=== PATIENT | male | born 1990 | race Caucasian/White ===

== ENCOUNTER 2021-11-28 20:29 | Emergency (ER) | payer MEDICAID, SELFPAY ==
--- NOTE | 2021-11-28 20:48 | ED_ITS ---
HPI - General Adult General Chief complaint: Groin Pain <Gordon Velez MD - Last Filed: 11/28/21 20:59> Stated complaint: BLOOD CLOT IN SCROTUM <Gordon Velez MD - Last Filed: 11/28/21 20:59> Time Seen by Provider: 11/28/21 20:47 <Gordon Velez MD - Last Filed: 11/28/21 20:59> History of Present Illness HPI narrative: This 31-year-old male comes in reporting pain in his scrotum. He states that he was she self there about 3 days ago and neck his Skin. Since then he has had some pain and bruising with swelling. He does not report any symptoms of dysuria. He does not have any chest pain or shortness of breath. 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 He was tested for genetic causes of thrombus but these were all negative in the past. <Gordon Velez MD - Last Filed: 11/28/21 20:59> Related Data Home medications: Home Medications Medication Instructions Recorded Confirmed No Known Home Medications 11/28/21 11/28/21 <Gordon Velez MD - Last Filed: 11/28/21 20:59> Allergies/adverse reactions: Allergies Allergy/AdvReac Type Severity Reaction Status Date / Time No Known Drug Allergies Allergy Verified 11/28/21 20:53 <Gordon Velez MD - Last Filed: 11/28/21 20:59> Review of Systems Status of ROS: Reports: 10 or more systems reviewed and unremarkable except as noted in History and below <Gordon Velez MD - Last Filed: 11/28/21 20:59> Narrative: Constitutional: No fevers, no weight gain or loss. Eyes: No discharge. No vision changes. HENT: No congestion, no sore throat, no ear pain. Cardiovascular: No chest pain, no palpitations. Respiratory: No shortness of breath, no wheezes, no cough. Gastrointestinal: No abdominal pain, no vomiting, no diarrhea. Genitourinary: No dysuria, no hematuria. Pain, swelling, and bruising in the inferior posterior aspect of his scrotum. Musculoskeletal: Normal range of motion. Skin: No rashes, no pruritis. Neurological: No dizziness, weakness, sensory change, speech change. Endo/Heme/Allergies: No bruising or bleeding. No polydipsia. Pysch: no suicidality, no anxiety, no insomnia. All other systems reviewed and are negative. <Gordon Velez MD - Last Filed: 11/28/21 20:59> [facility] Medical History: Medical History (Updated 11/28/21 @ 21:02 by Angel Cotton, RN) Right leg DVT <Gordon Velez MD - Last Filed: 11/28/21 20:59> Surgical History: Surgical History (Updated 11/28/21 @ 21:02 by Angel Cotton, ISRA) No significant past surgical history <Gordon Velez MD - Last Filed: 11/28/21 20:59> Social History: Social History Smoking Status: Never smoker Do you use any of these nicotine containing products: None How often do you have a drink containing alcohol: never How often do you have six or more drinks on one occasion: Never AUDIT-C Alcohol total score: 0 Non-prescribed substance use: denies use <Gordon Velez MD - Last Filed: 11/28/21 20:59> Exam Const: Vital Signs, click to edit/add: Vital Signs - 24 hr 11/28/21 20:51 11/28/21 21:58 Temperature 97.9 F 97.9 F Pulse Rate [Right Pulse Oximeter] 89 78 Respiratory Rate 16 16 Blood Pressure [Ri ght Upper Arm] 135/78 125/70 Pulse Oximetry 98 98 Oxygen Delivery Me thod Room Air Room Air <Gordon Velez MD - Last Filed: 11/28/21 20:59> Vital Signs, click to edit/add: Vital Signs - 24 hr 11/28/21 20:51 11/28/21 21:58 Temperature 97.9 F 97.9 F Pulse Rate [Right Pulse Oximeter] 89 78 Respiratory Rate 16 16 Blood Pressure [Ri ght Upper Arm] 135/78 125/70 Pulse Oximetry 98 98 Oxygen Delivery Me thod Room Air Room Air <Jp Dunn MD - Last Filed: 11/28/21 23:45> Course Reevaluation(s) Reevaluation #1: I spoke to the patient, testicular ultrasound showed evidence of a small hematoma, but no other significant issue. We will use some bacitracin on this along with some heat, he was very reassured by this. <Jp Dunn MD - Last Filed: 11/28/21 23:45> Vital Signs Vital signs: Initial Vital Signs Temperature 97.9 F 11/28/21 20:51 Temperature Source Temporal Artery Scan 11/28/21 20:51 Pulse Rate 89 11/28/21 20:51 Respiratory Rate 16 11/28/21 20:51 Blood Pressure 135/78 11/28/21 20:51 Blood Pressure Mean 97 11/28/21 20:51 Blood Pressure Position Sitting 11/28/21 20:51 Pulse Oximetry 98 11/28/21 20:51 Oxygen Delivery Method 11/28/21 20:51 Vital Signs Temperature 97.9 F 11/28/21 20:51 Pulse Rate 89 11/28/21 20:51 Respiratory Rate 16 11/28/21 20:51 Blood Pressure 135/78 11/28/21 20:51 Pulse Oximetry 98 11/28/21 20:51 Oxygen Delivery Method 11/28/21 20:51 Temperature 97.9 F 11/28/21 21:58 Pulse Rate 78 11/28/21 21:58 Respiratory Rate 16 11/28/21 21:58 Blood Pressure 125/70 11/28/21 21:58 Pulse Oximetry 98 11/28/21 21:58 Oxygen Delivery Method 11/28/21 21:58 <Gordon Velez MD - Last Filed: 11/28/21 20:59> Initial Vital Signs Temperature 97.9 F 11/28/21 20:51 Temperature Source Temporal Artery Scan 11/28/21 20:51 Pulse Rate 89 11/28/21 20:51 Respiratory Rate 16 11/28/21 20:51 Blood Pressure 135/78 11/28/21 20:51 Blood Pressure Mean 97 11/28/21 20:51 Blood Pressure Position Sitting 11/28/21 20:51 Pulse Oximetry 98 11/28/21 20:51 Oxygen Delivery Method 11/28/21 20:51 Vital Signs Temperature 97.9 F 11/28/21 20:51 Pulse Rate 89 11/28/21 20:51 Respiratory Rate 16 11/28/21 20:51 Blood Pressure 135/78 11/28/21 20:51 Pulse Oximetry 98 11/28/21 20:51 Oxygen Delivery Method 11/28/21 20:51 Temperature 97.9 F 11/28/21 21:58 Pulse Rate 78 11/28/21 21:58 Respiratory Rate 16 11/28/21 21:58 Blood Pressure 125/70 11/28/21 21:58 Pulse Oximetry 98 11/28/21 21:58 Oxygen Delivery Method 11/28/21 21:58 <Jp Dunn MD - Last Filed: 11/28/21 23:45> Medical Decision Making MDM Narrative Medical decision making narrative: This patient has pain, bruising, and suspicion of a thrombus in the inferior portion of his scrotum. An ultrasound of this area is ordered with results pending at the end of my shift. These results will be reviewed by the overnight physician. <Gordon Velez MD - Last Filed: 11/28/21 20:59> Imaging Data Testicular ultrasound: Attestation: I have reviewed the pertinent imaging results. <Jp Dunn MD - Last Filed: 11/28/21 23:45> Radiologist's impression: Patient: NAKUL MADISON Facility:?[facility] Patient ID:?[id number] Site Patient ID:?[id number]. Site :?[id number] Study:?US Testicle -11/28/2021 10:59:30 PM Ordering Physician:?Agustin Leyva Final Report: INDICATION: Tenderness and bruising to the inferior right testis for the past 4 days. History of DVT of the right leg 3 years ago. COMPARISON: None available. FINDINGS: Ultrasound examination of the testes was performed with a high-resolution linear transducer. The area of bruising correlates with a hypoechoic region of thickening of the scrotal wall consistent with a hematoma, measuring 2.5 x 0.8 x 2.1 centimeters. This does not show increased color Doppler flow. There is no sign of injury to the intra testicular structures. The testes are normal in appearance, with smooth margins and uniform internal echogenicity. There is normal and symmetric color and pulse doppler flow. The right testis measures 5.1 x 2.5 x 3.1 cm and the left measures 5.1 x 2.1 x 3.0 cm. Incidental note is made of a small simple cyst in the left epididymal head measuring 1.1 x 0.6 x 0.8 centimeters. The right epididymal head is normal in appearance. There is no sign of hydrocele. No extratesticular masses are seen. IMPRESSION: Area of bruising and swelling corresponds to a focal right inferior scrotal wall hematoma measuring 2.5 x 0.8 x 2.1 centimeters. No sign of injury to the intratesticular structures. Dictated by Julian Maldonado MD @ 11/28/2021 11:30:03 PM (Electronic Signature) <Jp Dunn MD - Last Filed: 11/28/21 23:45> Discharge Plan Discharge Clinical Impression: Thrombosis of scrotum <Gordon Velez MD - Last Filed: 11/28/21 20:59> Patient Disposition: Home, Self-Care <Gordon Velez MD - Last Filed: 11/28/21 20:59> Condition: Unchanged <Gordon Velez MD - Last Filed: 11/28/21 20:59> Instructions: Scrotal Pain (ED) <Gordon Velez MD - Last Filed: 11/28/21 20:59> Additional Instructions: Home rest bacitracin on the area, small hematoma seen. This will cause no problems going forward. Does take some time to improve. Warm compresses can help also. <Gordon Velez MD - Last Filed: 11/28/21 20:59> Prescriptions: No Action No Known Home Medications <Gordon Velez MD - Last Filed: 11/28/21 20:59> Follow Up/Referrals: Provider,Not a Local [Primary Care Provider] - <Gordon Velez MD - Last Filed: 11/28/21 20:59> Stand Alone Forms: My[facility] Info Instructions <Gordon Velez MD - Last Filed: 11/28/21 20:59>
[2021-11-28 20:51] VITALS: BP 135/78; PULSE 89; RESP 16; TEMP 36.6; O2SAT 98; BMI 27.6
[2021-11-28 21:58] VITALS: BP 125/70; PULSE 78; RESP 16; TEMP 36.6; O2SAT 98
[2021-11-28 23:51] VITALS: BP 132/78; PULSE 74; RESP 16; TEMP 36.6; O2SAT 98
[2021-11-28 23:53] VITALS: BP 132/78; PULSE 74; RESP 16; TEMP 36.6
== END 2021-11-28 23:54 | disposition home or self-care (01) ==
LOC: ED 21:22
PROVIDERS: Emergency Provider Family Medicine
DX: N50.1 Vascular disorders of male genital organs (principal)
CPT/HCPCS: 76870; 93976; 99282